=== PATIENT | male | born 1935 | race Caucasian/White ===

== ENCOUNTER 2018-02-17 16:03 | Inpatient (IN) ==
[2018-02-17] MEDS ORDERED: SODIUM CHLORIDE 0.9% 1,000 ML IV STA (16:57)
[2018-02-17 17:19] LABS: Basophils % 0.5 % (0.0-0.8); Eosinophils # 0.4 10*3/uL (0.0-0.87); Eosinophils % 4.9 % (0.00-10.9); Hematocrit 31.9 VOL% (42.0-52.0); Hemoglobin 11.8 GM/DL (14.0-18.0); Immature Granulocytes % 0.1 %; Immature Granulocytes Absolute 0.01 #; Lymphocytes # 1.5 10*3/uL (1.4-4.0); Lymphocytes % 17.5 % (21.2-54.2); Mean Corpuscular Hemoglobin 33 PG (27-34); Mean Corpuscular Volume 89.6 FL (87-102); Mean Platelet Volume 8.6 FL (9.6-12.0); Monocytes # 0.7 10*3/uL (0.11-0.8); Neutrophils # 5.8 10*3/uL (1.4-7.4); Platelet Count 178 T/CUMM (130-400); Red Blood Count 3.56 MC/CUMM (3.8-5.5); White Blood Count 8.4 T/CUMM (4-12)
[2018-02-17 17:25] LABS: Apearance,Urine Slightly Hazy (Clear); Bacteria,Urine Occasional /HPF (Few); Bilirubin,Urine Negative (Negative); Blood, Urine Negative (Negative); Glucose,Urine (UA) Negative (Negative); Ketones,Urine Negative (Negative); Nitrite,Urine Negative (Negative); Protein,Urine Negative; RBC,Urine 2 /HPF (0-4); Urine Color Yellow (Yellow); Urine Specific Gravity 1.002 (1.001-1.035); Urine Urobilinogen < 2.0 EU/DL (0.2-1.0); WBC,Urine 159 /HPF (0-6)
[2018-02-17 17:36] LABS: Calcium 8.4 MG/DL (8.5-10.1); Osmolality,Calculated 243.9 MOS/KG (273-304); Potassium 3.3 MMOL/L (3.5-5.1)
[2018-02-17] MEDS ORDERED: MORPHINE 4 MG/1 ML VIAL IV PRN (20:58)
[2018-02-17] MEDS ORDERED: ACETAMINOPHEN 325 MG TABLET PO PRN (20:58)
[2018-02-17] MEDS ORDERED: MAGNESIUM SULF RIDER 4 GM in PREMIX 1 EACH IV PRN (20:58)
[2018-02-17] MEDS ORDERED: MAGNESIUM SULF RIDER 2 GM in PREMIX 1 EACH IV PRN (20:58)
[2018-02-17] MEDS ORDERED: ONDANSETRON 4 MG/2 ML VIAL IV PRN (20:58)
[2018-02-17] MEDS: SODIUM CHLORIDE 0.9% 1,000 ML IV SCH (22:36)
[2018-02-17] MEDS: LEVOFLOXACIN INJ 750 MG in PREMIX 1 EACH IV SCH (22:36)
[2018-02-17] MEDS: POTASSIUM CHLORIDE 20 MEQ TABLET PO PRN (23:23)
[2018-02-18] MEDS: metroNIDAZOLE INJ 500 MG in PREMIX 1 EACH IV SCH ×3 (00:11→16:16)
[2018-02-18 06:52] LABS: Calcium 8.6 MG/DL (8.5-10.1); Osmolality,Calculated 254.9 MOS/KG (273-304); Potassium 3.8 MMOL/L (3.5-5.1); Thyroid Stimulating Hormone 2.88 uIU/ml (0.358-3.74)
[2018-02-18 06:53] LABS: Basophils % 0.4 % (0.0-0.8); Eosinophils # 0.3 10*3/uL (0.0-0.87); Eosinophils % 3.5 % (0.00-10.9); Hematocrit 35.7 VOL% (42.0-52.0); Hemoglobin 13.4 GM/DL (14.0-18.0); Immature Granulocytes % 0.2 %; Immature Granulocytes Absolute 0.02 #; Lymphocytes # 1.1 10*3/uL (1.4-4.0); Lymphocytes % 11.7 % (21.2-54.2); Mean Corpuscular HGB Conc 37.5 GM/DL (32-36); Mean Corpuscular Hemoglobin 33 PG (27-34); Mean Corpuscular Volume 87.3 FL (87-102); Mean Platelet Volume 8.8 FL (9.6-12.0); Monocytes # 0.9 10*3/uL (0.11-0.8); Monocytes % 9.2 % (1.7-12.7); Platelet Count 211 T/CUMM (130-400); Red Blood Count 4.09 MC/CUMM (3.8-5.5); White Blood Count 9.4 T/CUMM (4-12)
[2018-02-18 07:01] LABS: Giant Platelets Few; Ovalocytes Slight; Platelet Estimate Adequate
[2018-02-18 07:02] LABS: Hypochromasia Slight
[2018-02-18] MEDS: PANTOPRAZOLE 40 MG TABLET PO SCH (09:43)
[2018-02-18] MEDS: SODIUM CHLORIDE 0.9% 1,000 ML IV SCH (09:50)
[2018-02-18] MEDS: POTASSIUM CHLORIDE 20 MEQ TABLET PO PRN (21:12)
[2018-02-18] MEDS: TEMAZEPAM 15 MG CAPSULE PO PRN (21:12)
[2018-02-18] MEDS: LEVOFLOXACIN INJ 750 MG in PREMIX 1 EACH IV SCH (21:12)
[2018-02-19] MEDS: metroNIDAZOLE INJ 500 MG in PREMIX 1 EACH IV SCH ×3 (00:04→16:24)
[2018-02-19 06:12] LABS: Basophils % 0.4 % (0.0-0.8); Eosinophils # 0.4 10*3/uL (0.0-0.87); Eosinophils % 5.7 % (0.00-10.9); Hematocrit 32.2 VOL% (42.0-52.0); Hemoglobin 11.9 GM/DL (14.0-18.0); Immature Granulocytes % 0.6 %; Immature Granulocytes Absolute 0.04 #; Lymphocytes # 1.1 10*3/uL (1.4-4.0); Lymphocytes % 16.5 % (21.2-54.2); Mean Corpuscular Hemoglobin 33 PG (27-34); Mean Corpuscular Volume 89.2 FL (87-102); Mean Platelet Volume 8.8 FL (9.6-12.0); Monocytes # 0.7 10*3/uL (0.11-0.8); Monocytes % 9.6 % (1.7-12.7); Neutrophils # 4.6 10*3/uL (1.4-7.4); Neutrophils % 67.2 % (38.7-73.9); Platelet Count 190 T/CUMM (130-400); Red Blood Count 3.61 MC/CUMM (3.8-5.5); Red Cell Distribution Width 12.1 % (9.3-17.3); White Blood Count 6.9 T/CUMM (4-12)
[2018-02-19] MEDS: SODIUM CHLORIDE 0.9% 1,000 ML IV SCH ×4 (06:15→22:49)
[2018-02-19 06:23] LABS: Calcium 7.5 MG/DL (8.5-10.1); Osmolality,Calculated 259.5 MOS/KG (273-304); Potassium 3.7 MMOL/L (3.5-5.1)
[2018-02-19] MEDS: PANTOPRAZOLE 40 MG TABLET PO SCH (09:35)
[2018-02-19] MEDS: cefTRIAXone 1,000 MG in SYRINGE 1 EACH IV SCH (12:13)
[2018-02-19] MEDS ORDERED: FLUTICASONE 50 MCG NASAL SPRAY 16 GM BOTTLE BOTH NARES PRN (14:41)
[2018-02-19 20:53] LABS: Calcium 7.6 MG/DL (8.5-10.1); Osmolality,Calculated 258.8 MOS/KG (273-304); Potassium 3.6 MMOL/L (3.5-5.1)
[2018-02-19] MEDS: clonazePAM 0.5 MG TABLET PO SCH (21:50)
[2018-02-19] MEDS: TERAZOSIN 5 MG CAPSULE PO SCH (21:50)
[2018-02-19] MEDS: LEVOFLOXACIN INJ 750 MG in PREMIX 1 EACH IV SCH (21:50)
[2018-02-19] MEDS: TEMAZEPAM 15 MG CAPSULE PO PRN (21:50)
[2018-02-20] MEDS: metroNIDAZOLE INJ 500 MG in PREMIX 1 EACH IV SCH ×3 (00:24→15:40)
[2018-02-20] MEDS: BISACODYL 5 MG TABLET PO SCH ×2 (06:36→16:13)
[2018-02-20] MEDS: SODIUM CHLORIDE 0.9% 1,000 ML IV SCH ×3 (06:40→18:37)
[2018-02-20 07:23] LABS: Basophils % 0.6 % (0.0-0.8); Eosinophils # 0.4 10*3/uL (0.0-0.87); Eosinophils % 6.1 % (0.00-10.9); Hematocrit 35.4 VOL% (42.0-52.0); Immature Granulocytes % 0.3 %; Immature Granulocytes Absolute 0.02 #; Lymphocytes # 1.1 10*3/uL (1.4-4.0); Lymphocytes % 15.8 % (21.2-54.2); Mean Corpuscular HGB Conc 36.7 GM/DL (32-36); Mean Corpuscular Hemoglobin 33 PG (27-34); Mean Corpuscular Volume 88.5 FL (87-102); Mean Platelet Volume 8.6 FL (9.6-12.0); Monocytes # 0.7 10*3/uL (0.11-0.8); Monocytes % 9.5 % (1.7-12.7); Neutrophils # 4.8 10*3/uL (1.4-7.4); Neutrophils % 67.7 % (38.7-73.9); Platelet Count 194 T/CUMM (130-400); Red Cell Distribution Width 12.2 % (9.3-17.3)
[2018-02-20 07:49] LABS: Calcium 7.5 MG/DL (8.5-10.1); Osmolality,Calculated 262.4 MOS/KG (273-304); Potassium 3.4 MMOL/L (3.5-5.1)
[2018-02-20] MEDS: ATORVASTATIN 20 MG TABLET PO SCH (09:37)
[2018-02-20] MEDS: ASCORBIC ACID 500 MG TABLET PO SCH (09:37)
[2018-02-20] MEDS: TAMSULOSIN 0.4 MG CAPSULE PO SCH (09:37)
[2018-02-20] MEDS: MAGNESIUM CHLORIDE 64 MG TABLET PO SCH (09:37)
[2018-02-20] MEDS: MULTIVITAMIN (CENTRUM) TABLET PO SCH (09:37)
[2018-02-20] MEDS: CALCIUM (CARBONATE)/VITAMIN D 600 MG-400 UNIT TABLET PO SCH (09:37)
[2018-02-20] MEDS: PROPRANOLOL 20 MG TABLET PO SCH (09:37)
[2018-02-20] MEDS: clonazePAM 0.5 MG TABLET PO SCH ×2 (09:37→21:28)
[2018-02-20] MEDS: hydroCHLOROthiazide 25 MG TABLET PO SCH (09:37)
[2018-02-20] MEDS: PANTOPRAZOLE 40 MG TABLET PO SCH (09:37)
[2018-02-20] MEDS: ASPIRIN EC 81 MG TABLET PO SCH (09:37)
[2018-02-20] MEDS: SPIRONOLACTONE 25 MG TABLET PO SCH (09:39)
[2018-02-20] MEDS: POTASSIUM CHLORIDE RIDER 10 MEQ in PREMIX 1 EACH IV SCH ×3 (11:15→21:33)
[2018-02-20] MEDS: cefTRIAXone 1,000 MG in SYRINGE 1 EACH IV SCH (11:16)
[2018-02-20] MEDS ORDERED: diphenhydrAMINE CAP 25 MG CAPSULE PO PRN (13:44)
[2018-02-20] MEDS ORDERED: POLYETHYLENE GLYCOL POWDER 255 GM BOTTLE PO ONE (16:00)
[2018-02-20] MEDS ORDERED: MAGNESIUM CITRATE 300 ML BOTTLE PO ONE (21:00)
[2018-02-20] MEDS: LEVOFLOXACIN INJ 750 MG in PREMIX 1 EACH IV SCH (21:28)
[2018-02-20] MEDS: TERAZOSIN 5 MG CAPSULE PO SCH (21:28)
[2018-02-21] MEDS: metroNIDAZOLE INJ 500 MG in PREMIX 1 EACH IV SCH ×3 (00:40→16:51)
[2018-02-21] MEDS: SODIUM CHLORIDE 0.9% 1,000 ML IV SCH ×4 (06:34→23:47)
[2018-02-21 06:46] LABS: Basophils % 0.4 % (0.0-0.8); Eosinophils # 0.5 10*3/uL (0.0-0.87); Eosinophils % 5.8 % (0.00-10.9); Hematocrit 36.6 VOL% (42.0-52.0); Hemoglobin 12.9 GM/DL (14.0-18.0); Immature Granulocytes % 0.2 %; Immature Granulocytes Absolute 0.02 #; Lymphocytes # 1.3 10*3/uL (1.4-4.0); Lymphocytes % 16.3 % (21.2-54.2); Mean Corpuscular HGB Conc 35.2 GM/DL (32-36); Mean Corpuscular Hemoglobin 32 PG (27-34); Mean Corpuscular Volume 91.5 FL (87-102); Monocytes # 0.8 10*3/uL (0.11-0.8); Monocytes % 9.1 % (1.7-12.7); Neutrophils # 5.6 10*3/uL (1.4-7.4); Neutrophils % 68.2 % (38.7-73.9); Platelet Count 200 T/CUMM (130-400); White Blood Count 8.2 T/CUMM (4-12)
[2018-02-21 07:11] LABS: Calcium 7.6 MG/DL (8.5-10.1); Osmolality,Calculated 262.4 MOS/KG (273-304); Potassium 3.8 MMOL/L (3.5-5.1)
[2018-02-21] MEDS: PANTOPRAZOLE 40 MG TABLET PO SCH (10:56)
[2018-02-21] MEDS: ASPIRIN EC 81 MG TABLET PO SCH (10:56)
[2018-02-21] MEDS: ATORVASTATIN 20 MG TABLET PO SCH (10:56)
[2018-02-21] MEDS: clonazePAM 0.5 MG TABLET PO SCH ×2 (10:56→21:08)
[2018-02-21] MEDS: MAGNESIUM CHLORIDE 64 MG TABLET PO SCH (10:56)
[2018-02-21] MEDS: SPIRONOLACTONE 25 MG TABLET PO SCH (10:56)
[2018-02-21] MEDS: ASCORBIC ACID 500 MG TABLET PO SCH (10:56)
[2018-02-21] MEDS: MULTIVITAMIN (CENTRUM) TABLET PO SCH (10:56)
[2018-02-21] MEDS: TAMSULOSIN 0.4 MG CAPSULE PO SCH (10:56)
[2018-02-21] MEDS: hydroCHLOROthiazide 25 MG TABLET PO SCH (10:57)
[2018-02-21] MEDS: CALCIUM (CARBONATE)/VITAMIN D 600 MG-400 UNIT TABLET PO SCH (10:57)
[2018-02-21] MEDS: PROPRANOLOL 20 MG TABLET PO SCH (11:09)
[2018-02-21] MEDS ORDERED: POLYETHYLENE GLYCOL POWDER 255 GM BOTTLE PO ONE (16:01)
[2018-02-21] MEDS: BISACODYL 5 MG TABLET PO SCH ×2 (16:54→23:47)
[2018-02-21 20:07] LABS: Albumin 2.8 G/DL (3.4-5.0); Bilirubin,Direct 0.2 MG/DL (0.0-0.20); Bilirubin,Indirect 0.4 MG/DL (0.0-1.0); Bilirubin,Total 0.6 MG/DL (0.2-1.0); Free T4 (Free Thyroxine) 1.1 NG/DL (0.76-1.46); Total Protein 6.2 G/DL (6.4-8.3)
[2018-02-21] MEDS: OXACILLIN 2,000 MG in SODIUM CHLORIDE 0.9% 100 ML IV SCH (21:00)
[2018-02-21] MEDS: TERAZOSIN 5 MG CAPSULE PO SCH (21:07)
[2018-02-21] MEDS: AMPICILLIN INJ 500 MG in SODIUM CHLORIDE 0.9% 100 ML IV SCH (22:14)
[2018-02-22] MEDS: OXACILLIN 2,000 MG in SODIUM CHLORIDE 0.9% 100 ML IV SCH ×4 (00:51→21:08)
[2018-02-22] MEDS: AMPICILLIN INJ 500 MG in SODIUM CHLORIDE 0.9% 100 ML IV SCH ×3 (05:40→22:52)
[2018-02-22 06:20] LABS: Albumin 2.7 G/DL (3.4-5.0); Basophils # 0.1 10*3/uL (0.0-0.2); Basophils % 0.7 % (0.0-0.8); Bilirubin,Direct 0.26 MG/DL (0.0-0.20); Bilirubin,Total 1.3 MG/DL (0.2-1.0); Eosinophils # 0.5 10*3/uL (0.0-0.87); Eosinophils % 5.9 % (0.00-10.9); Hematocrit 35.8 VOL% (42.0-52.0); Hemoglobin 13.1 GM/DL (14.0-18.0); Immature Granulocytes % 0.5 %; Immature Granulocytes Absolute 0.04 #; Lymphocytes # 1.1 10*3/uL (1.4-4.0); Lymphocytes % 12.1 % (21.2-54.2); Mean Corpuscular HGB Conc 36.6 GM/DL (32-36); Mean Corpuscular Hemoglobin 33 PG (27-34); Mean Corpuscular Volume 89.3 FL (87-102); Mean Platelet Volume 9.1 FL (9.6-12.0); Monocytes # 0.6 10*3/uL (0.11-0.8); Monocytes % 7.3 % (1.7-12.7); Neutrophils # 6.4 10*3/uL (1.4-7.4); Neutrophils % 73.5 % (38.7-73.9); Platelet Count 199 T/CUMM (130-400); Red Blood Count 4.01 MC/CUMM (3.8-5.5); Red Cell Distribution Width 12.3 % (9.3-17.3); Total Protein 5.4 G/DL (6.4-8.3); White Blood Count 8.7 T/CUMM (4-12)
[2018-02-22 06:26] LABS: Calcium 7.7 MG/DL (8.5-10.1); Osmolality,Calculated 263.4 MOS/KG (273-304); Potassium 3.3 MMOL/L (3.5-5.1)
[2018-02-22] MEDS ORDERED: MAGNESIUM SULF INJ 3 GM in SODIUM CHLORIDE 0.9% 100 ML IV ONE (08:00)
[2018-02-22] MEDS: POTASSIUM CHLORIDE RIDER 10 MEQ in PREMIX 1 EACH IV SCH ×3 (08:00→10:00)
[2018-02-22] MEDS: MULTIVITAMIN (CENTRUM) TABLET PO SCH (08:27)
[2018-02-22] MEDS: SPIRONOLACTONE 25 MG TABLET PO SCH ×2 (08:27→11:17)
[2018-02-22] MEDS: CALCIUM (CARBONATE)/VITAMIN D 600 MG-400 UNIT TABLET PO SCH (08:27)
[2018-02-22] MEDS: BISACODYL 5 MG TABLET PO SCH (08:27)
[2018-02-22] MEDS: ASPIRIN EC 81 MG TABLET PO SCH (08:27)
[2018-02-22] MEDS: MAGNESIUM CHLORIDE 64 MG TABLET PO SCH ×2 (08:28→21:12)
[2018-02-22] MEDS: TAMSULOSIN 0.4 MG CAPSULE PO SCH ×2 (08:28→11:17)
[2018-02-22] MEDS: PROPRANOLOL 20 MG TABLET PO SCH ×2 (08:28→11:17)
[2018-02-22] MEDS: clonazePAM 0.5 MG TABLET PO SCH ×3 (08:28→21:12)
[2018-02-22] MEDS: PANTOPRAZOLE 40 MG TABLET PO SCH ×2 (08:28→11:16)
[2018-02-22] MEDS: ASCORBIC ACID 500 MG TABLET PO SCH (08:28)
[2018-02-22] MEDS: ATORVASTATIN 20 MG TABLET PO SCH (08:28)
[2018-02-22] MEDS: hydroCHLOROthiazide 25 MG TABLET PO SCH ×2 (08:28→11:17)
[2018-02-22] MEDS ORDERED: LIDOCAINE 2% 5 ML VIAL ONE (09:03)
[2018-02-22] MEDS ORDERED: PROPOFOL 200 MG/20 ML VIAL IV ONE (09:03)
[2018-02-22] MEDS: ZINC OXIDE PASTE 113 GM TUBE TOP SCH ×2 (11:09→21:11)
[2018-02-22] MEDS: SODIUM CHLORIDE 0.9% 1,000 ML IV SCH ×3 (11:11→22:51)
[2018-02-22] MEDS: POTASSIUM CHLORIDE 20 MEQ TABLET PO PRN ×3 (11:16→18:28)
[2018-02-22] MEDS: TERAZOSIN 5 MG CAPSULE PO SCH (21:11)
[2018-02-23] MEDS: OXACILLIN 2,000 MG in SODIUM CHLORIDE 0.9% 100 ML IV SCH ×2 (00:31→09:02)
[2018-02-23 01:48] LABS: Calcium 7.5 MG/DL (8.5-10.1); Osmolality,Calculated 262.5 MOS/KG (273-304)
[2018-02-23] MEDS: AMPICILLIN INJ 500 MG in SODIUM CHLORIDE 0.9% 100 ML IV SCH (05:32)
[2018-02-23] MEDS: MULTIVITAMIN (CENTRUM) TABLET PO SCH (09:03)
[2018-02-23] MEDS: ASCORBIC ACID 500 MG TABLET PO SCH (09:03)
[2018-02-23] MEDS: hydroCHLOROthiazide 25 MG TABLET PO SCH (09:03)
[2018-02-23] MEDS: TAMSULOSIN 0.4 MG CAPSULE PO SCH (09:03)
[2018-02-23] MEDS: PROPRANOLOL 20 MG TABLET PO SCH (09:03)
[2018-02-23] MEDS: ATORVASTATIN 20 MG TABLET PO SCH (09:03)
[2018-02-23] MEDS: clonazePAM 0.5 MG TABLET PO SCH (09:03)
[2018-02-23] MEDS: SPIRONOLACTONE 25 MG TABLET PO SCH (09:03)
[2018-02-23] MEDS: CALCIUM (CARBONATE)/VITAMIN D 600 MG-400 UNIT TABLET PO SCH (09:03)
[2018-02-23] MEDS: ASPIRIN EC 81 MG TABLET PO SCH (09:04)
[2018-02-23] MEDS: MAGNESIUM CHLORIDE 64 MG TABLET PO SCH (09:04)
[2018-02-23] MEDS: ZINC OXIDE PASTE 113 GM TUBE TOP SCH (09:04)
[2018-02-23] MEDS: PANTOPRAZOLE 40 MG TABLET PO SCH (09:04)
[2018-02-23 11:41] VITALS: BP 94/53
== END 2018-02-23 12:36 | disposition home health service (06) | DRG 371 ==
LOC: N.ED 16:03 → N.EDINP 20:03 → N.5E 20:39

== ENCOUNTER 2021-10-11 15:58 | Inpatient (IN) ==
[2021-10-11] MEDS ORDERED: SODIUM CHLORIDE 0.9% 1,000 ML IV STA (16:28)
[2021-10-11 16:51] LABS: Basophils # 0.1 10*3/uL (0.0-0.2); Basophils % 0.7 % (0.0-0.8); Eosinophils # 0.1 10*3/uL (0.0-0.87); Eosinophils % 0.5 % (0.00-10.9); Hematocrit 36.3 VOL% (42.0-52.0); Hemoglobin 12.4 GM/DL (14.0-18.0); Immature Granulocytes % 0.2 %; Immature Granulocytes Absolute 0.02 #; Lymphocytes # 1.9 10*3/uL (1.4-4.0); Lymphocytes % 20.3 % (21.2-54.2); Mean Corpuscular HGB Conc 34.2 GM/DL (32-36); Mean Corpuscular Volume 92.8 FL (87-102); Mean Platelet Volume 9.9 FL (9.6-12.0); Monocytes % 10.9 % (1.7-12.7); Neutrophils % 67.4 % (38.7-73.9); Platelet Count 185 T/CUMM (130-400); Red Blood Count 3.91 MC/CUMM (3.8-5.5); Red Cell Distribution Width 12.9 % (9.3-17.3); White Blood Count 9.2 T/CUMM (4-12)
[2021-10-11 17:05] LABS: Albumin 2.9 G/DL (3.4-5.0); Bilirubin,Total 0.9 MG/DL (0.20-1.00); Calcium 8.5 MG/DL (8.5-10.1); Osmolality,Calculated 264.8 MOS/KG (273-304); Potassium 3.8 MMOL/L (3.5-5.1); Total Protein 6.3 G/DL (6.4-8.2)
[2021-10-11] MEDS ORDERED: hydrALAZINE 20 MG/1 ML VIAL IV PRN (20:04)
[2021-10-11] MEDS ORDERED: ACETAMINOPHEN 325 MG TABLET PO PRN (20:04)
[2021-10-11] MEDS ORDERED: GLUCAGON 1 MG VIAL IM PRN (20:04)
[2021-10-11] MEDS ORDERED: MORPHINE 2 MG/1 ML SYRINGE IV PRN (20:04)
[2021-10-11] MEDS ORDERED: DEXTROSE 10% 250 ML BAG IV PRN (20:04)
[2021-10-11] MEDS ORDERED: ONDANSETRON 4 MG/2 ML VIAL IV PRN (20:04)
[2021-10-11] MEDS ORDERED: SODIUM CHLORIDE 0.9% 1,000 ML IV SCH (20:30)
[2021-10-11 20:37] LABS: Bilirubin,Urine Negative (Negative); Blood, Urine Moderate mg/dL (Negative); Glucose,Urine (UA) Negative (Negative); Ketones,Urine Negative (Negative); Nitrite,Urine Negative (Negative); Protein,Urine Negative; RBC,Urine 7 /HPF (0-4); Urine Appearance CLEAR (Clear); Urine Color Straw (Yellow); Urine Specific Gravity 1.012 (1.001-1.035); Urine Urobilinogen < 2.0 EU/DL (<2.0)
[2021-10-12 06:41] LABS: Basophils # 0.1 10*3/uL (0.0-0.2); Basophils % 0.7 % (0.0-0.8); Eosinophils # 0.1 10*3/uL (0.0-0.87); Hemoglobin 11.8 GM/DL (14.0-18.0); Immature Granulocytes % 0.3 %; Immature Granulocytes Absolute 0.02 #; Lymphocytes # 1.5 10*3/uL (1.4-4.0); Lymphocytes % 22.8 % (21.2-54.2); Mean Corpuscular HGB Conc 33.7 GM/DL (32-36); Mean Corpuscular Volume 92.8 FL (87-102); Mean Platelet Volume 10.2 FL (9.6-12.0); Monocytes % 10.9 % (1.7-12.7); Neutrophils % 64.3 % (38.7-73.9); Platelet Count 172 T/CUMM (130-400); Red Blood Count 3.77 MC/CUMM (3.8-5.5); White Blood Count 6.7 T/CUMM (4-12)
[2021-10-12 07:03] LABS: Albumin 2.5 G/DL (3.4-5.0); Calcium 8.1 MG/DL (8.5-10.1); Osmolality,Calculated 269.1 MOS/KG (273-304); Potassium 3.6 MMOL/L (3.5-5.1); Total Protein 5.6 G/DL (6.4-8.2)
[2021-10-12] MEDS: ENOXAPARIN 40 MG/0.4 ML SYRINGE SUBCUT SCH (10:09)
[2021-10-12] MEDS: PANTOPRAZOLE 40 MG TABLET PO SCH (10:09)
[2021-10-12] MEDS ORDERED: MAGNESIUM SULF RIDER 2 GM/50 ML PREMIX IV ONE (10:29)
[2021-10-12 16:06] LABS: Cancer Antigen 19-9 12.57 U/ML (0-35); Carcinoembryonic Antigen 0.8 NG/ML (0.0-5.0); Prostate Specific Antigen Diag 1.05 NG/ML (0-3.60)
[2021-10-12 16:13] LABS: INR 1.3; PT Patient Result 14.5 SECS (10.5-12.0)
[2021-10-12] MEDS: clonazePAM 0.5 MG TABLET PO SCH (20:22)
[2021-10-13 05:52] LABS: Basophils # 0.1 10*3/uL (0.0-0.2); Basophils % 0.9 % (0.0-0.8); Eosinophils # 0.3 10*3/uL (0.0-0.87); Eosinophils % 3.1 % (0.00-10.9); Hematocrit 36.9 VOL% (42.0-52.0); Hemoglobin 12.3 GM/DL (14.0-18.0); Immature Granulocytes % 0.5 %; Immature Granulocytes Absolute 0.04 #; Lymphocytes # 1.6 10*3/uL (1.4-4.0); Lymphocytes % 19.4 % (21.2-54.2); Mean Corpuscular HGB Conc 33.3 GM/DL (32-36); Mean Corpuscular Volume 94.4 FL (87-102); Mean Platelet Volume 9.6 FL (9.6-12.0); Neutrophils % 67.1 % (38.7-73.9); Platelet Count 170 T/CUMM (130-400); Red Blood Count 3.91 MC/CUMM (3.8-5.5); Red Cell Distribution Width 13.2 % (9.3-17.3)
[2021-10-13 06:28] LABS: Calcium 7.9 MG/DL (8.5-10.1); Osmolality,Calculated 264.4 MOS/KG (273-304); Potassium 3.9 MMOL/L (3.5-5.1)
[2021-10-13] MEDS: LEVOTHYROXINE 50 MCG TABLET PO SCH (07:25)
[2021-10-13] MEDS ORDERED: SODIUM CHLORIDE 0.45% 1,000 ML IV SCH (09:30)
[2021-10-13] MEDS: MAGNESIUM CHLORIDE 64 MG TABLET PO SCH (09:40)
[2021-10-13] MEDS: PANTOPRAZOLE 40 MG TABLET PO SCH (09:40)
[2021-10-13] MEDS: TAMSULOSIN 0.4 MG CAPSULE PO SCH (09:40)
[2021-10-13] MEDS: clonazePAM 0.5 MG TABLET PO SCH ×2 (09:40→20:16)
[2021-10-13] MEDS: ENOXAPARIN 40 MG/0.4 ML SYRINGE SUBCUT SCH (09:53)
[2021-10-14] MEDS: LEVOTHYROXINE 50 MCG TABLET PO SCH (05:34)
[2021-10-14] MEDS: clonazePAM 0.5 MG TABLET PO SCH (09:06)
[2021-10-14] MEDS: ENOXAPARIN 40 MG/0.4 ML SYRINGE SUBCUT SCH (09:06)
[2021-10-14] MEDS: MAGNESIUM CHLORIDE 64 MG TABLET PO SCH (09:07)
[2021-10-14] MEDS: PANTOPRAZOLE 40 MG TABLET PO SCH (09:07)
[2021-10-14] MEDS: TAMSULOSIN 0.4 MG CAPSULE PO SCH (09:07)
[2021-10-14 11:46] VITALS: BP 131/62
== END 2021-10-14 14:11 | disposition home health service (06) | DRG 844 ==
LOC: N.ED 15:58 → SUATTDRO 20:04 → N.EDINP 20:04 → N.5E 22:44
PROVIDERS: ADMIT Internal Medicine; ATTEND Internal Medicine

== ENCOUNTER 2021-12-14 13:14 | Inpatient (IN) ==
[2021-12-14] MEDS ORDERED: SODIUM CHLORIDE 0.9% 1,000 ML IV STA (13:45)
[2021-12-14 14:31] LABS: Basophils # 0.1 10*3/uL (0.0-0.2); Eosinophils # 0.2 10*3/uL (0.0-0.87); Eosinophils % 2.5 % (0.00-10.9); Hematocrit 36.6 VOL% (42.0-52.0); Hemoglobin 12.1 GM/DL (14.0-18.0); Immature Granulocytes % 0.3 %; Immature Granulocytes Absolute 0.02 #; Lymphocytes # 1.2 10*3/uL (1.4-4.0); Lymphocytes % 19.8 % (21.2-54.2); Mean Corpuscular HGB Conc 33.1 GM/DL (32-36); Mean Corpuscular Volume 93.8 FL (87-102); Monocytes % 7.9 % (1.7-12.7); Neutrophils % 68.5 % (38.7-73.9); Platelet Count 173 T/CUMM (130-400); Red Cell Distribution Width 13.9 % (9.3-17.3)
[2021-12-14 14:43] LABS: INR 1.2
[2021-12-14 14:51] LABS: Albumin 2.7 G/DL (3.4-5.0); Bilirubin,Total 0.9 MG/DL (0.20-1.00); Calcium 8.3 MG/DL (8.5-10.1); Osmolality,Calculated 275.7 MOS/KG (273-304); Potassium 3.9 MMOL/L (3.5-5.1); Total Protein 6.2 G/DL (6.4-8.2)
[2021-12-14] MEDS ORDERED: ALUMINUM/MAGNES/SIMETH MAX STR 30 ML UDCUP PO PRN (16:38)
[2021-12-14] MEDS ORDERED: guaiFENesin/DM ER 600-30 MG TABLET PO PRN (16:38)
[2021-12-14] MEDS ORDERED: ALBUTEROL 2.5 MG/3 ML NEB RESP TX PRN (16:38)
[2021-12-14] MEDS ORDERED: CALCIUM CARBONATE CHEW 500 MG TABLET PO PRN (16:38)
[2021-12-14] MEDS ORDERED: GLUCAGON 1 MG VIAL IM PRN (16:38)
[2021-12-14] MEDS ORDERED: SIMETHICONE CHEW 125 MG TABLET PO PRN (16:38)
[2021-12-14] MEDS ORDERED: hydrALAZINE 20 MG/1 ML VIAL IV PRN (16:38)
[2021-12-14] MEDS ORDERED: ACETAMINOPHEN 325 MG TABLET PO PRN (16:38)
[2021-12-14] MEDS ORDERED: ONDANSETRON 4 MG/2 ML VIAL IV PRN (16:38)
[2021-12-14] MEDS ORDERED: DEXTROSE 10% 250 ML BAG IV PRN (16:54)
[2021-12-14] MEDS ORDERED: cefTRIAXone 1,000 MG in SODIUM CHLORIDE 0.9% 100 ML IV SCH (17:00)
[2021-12-14] MEDS: LACTATED RINGERS 1,000 ML IV SCH (17:17)
[2021-12-14] MEDS ORDERED: AZITHROMYCIN INJ 500 MG in SODIUM CHLORIDE 0.9% 250 ML IV SCH (18:00)
[2021-12-14] MEDS ORDERED: MAGNESIUM SULF RIDER 2 GM/50 ML PREMIX IV ONE (18:23)
[2021-12-14] MEDS: ALBUTEROL/IPRATROPIUM 3 ML NEB RESP TX SCH ×2 (19:23→19:38)
[2021-12-14] MEDS: ENOXAPARIN 40 MG/0.4 ML SYRINGE SUBCUT SCH (22:59)
[2021-12-14] MEDS: ATORVASTATIN 20 MG TABLET PO SCH (23:00)
[2021-12-15] MEDS: ALBUTEROL/IPRATROPIUM 3 ML NEB RESP TX SCH ×4 (00:17→19:00)
[2021-12-15 00:33] LABS: Bacteria,Urine Occasional /HPF (Few); RBC,Urine 3 /HPF (0-4); Squamous Epithelial Cell,Urine Occasional /HPF (0-10)
[2021-12-15 00:34] LABS: Urine Appearance Clear (Clear); Urine Color Yellow (Yellow)
[2021-12-15 00:35] LABS: Bilirubin,Urine Negative (Negative); Blood, Urine Negative (Negative); Glucose,Urine (UA) Negative (Negative); Ketones,Urine TR mg/dL (Negative); Nitrite,Urine Negative (Negative); Protein,Urine Negative (Negative); Urine Specific Gravity 1.015 (1.001-1.035); Urine Urobilinogen 0.2 eU/dL (<2.0); Urine pH 6.5 (4.5-8.0)
[2021-12-15] MEDS: LACTATED RINGERS 1,000 ML IV SCH ×2 (02:10→18:36)
[2021-12-15 05:16] LABS: Basophils # 0.1 10*3/uL (0.0-0.2); Eosinophils # 0.1 10*3/uL (0.0-0.87); Eosinophils % 2.2 % (0.00-10.9); Hematocrit 33.3 VOL% (42.0-52.0); Immature Granulocytes % 0.2 %; Immature Granulocytes Absolute 0.01 #; Lymphocytes # 1.6 10*3/uL (1.4-4.0); Lymphocytes % 32.5 % (21.2-54.2); Mean Corpuscular Volume 94.3 FL (87-102); Monocytes % 9.5 % (1.7-12.7); Neutrophils % 54.6 % (38.7-73.9); Platelet Count 151 T/CUMM (130-400); Red Blood Count 3.53 MC/CUMM (3.8-5.5); Red Cell Distribution Width 13.8 % (9.3-17.3); White Blood Count 4.9 T/CUMM (4-12)
[2021-12-15 05:51] LABS: Albumin 2.3 G/DL (3.4-5.0); Bilirubin,Total 0.9 MG/DL (0.20-1.00); Calcium 7.9 MG/DL (8.5-10.1); Osmolality,Calculated 273.7 MOS/KG (273-304); Potassium 3.8 MMOL/L (3.5-5.1); Total Protein 5.6 G/DL (6.4-8.2)
[2021-12-15] MEDS: LEVOTHYROXINE 50 MCG TABLET PO SCH (06:18)
[2021-12-15] MEDS ORDERED: RASAGILINE 0.5 MG TABLET PO SCH (09:00)
[2021-12-15] MEDS ORDERED: DIPHENOXYLATE/ATROPINE 2.5-0.025 MG TABLET PO PRN ×2 (09:31→13:00)
[2021-12-15 11:09] LABS: Free T4 (Free Thyroxine) 1.2 NG/DL (0.76-1.46); Thyroid Stimulating Hormone 1.59 uIU/ml (0.358-3.74)
[2021-12-15] MEDS: ASPIRIN CHEW 81 MG TABLET PO SCH (11:17)
[2021-12-15] MEDS: PANTOPRAZOLE 40 MG TABLET PO SCH (11:17)
[2021-12-15] MEDS: TAMSULOSIN 0.4 MG CAPSULE PO SCH (11:17)
[2021-12-15] MEDS: POTASSIUM CHLORIDE 10 MEQ TABLET PO SCH (12:35)
[2021-12-15] MEDS: CYANOCOBALAMIN 500 MCG TABLET PO SCH (21:45)
[2021-12-15] MEDS: ENOXAPARIN 40 MG/0.4 ML SYRINGE SUBCUT SCH (21:45)
[2021-12-15] MEDS: RASAGILINE 0.5 MG TABLET PO SCH (21:45)
[2021-12-15] MEDS: ATORVASTATIN 20 MG TABLET PO SCH (21:46)
[2021-12-16] MEDS: LEVOTHYROXINE 50 MCG TABLET PO SCH (05:42)
[2021-12-16 05:58] LABS: Basophils # 0.1 10*3/uL (0.0-0.2); Eosinophils # 0.2 10*3/uL (0.0-0.87); Eosinophils % 2.9 % (0.00-10.9); Hemoglobin 11.4 GM/DL (14.0-18.0); Immature Granulocytes % 0.4 %; Immature Granulocytes Absolute 0.02 #; Lymphocytes # 1.5 10*3/uL (1.4-4.0); Lymphocytes % 29.2 % (21.2-54.2); Mean Corpuscular HGB Conc 32.6 GM/DL (32-36); Mean Corpuscular Volume 94.6 FL (87-102); Mean Platelet Volume 10.5 FL (9.6-12.0); Monocytes % 9.2 % (1.7-12.7); Neutrophils % 57.3 % (38.7-73.9); Platelet Count 165 T/CUMM (130-400); Red Cell Distribution Width 13.7 % (9.3-17.3); White Blood Count 5.2 T/CUMM (4-12)
[2021-12-16 06:15] LABS: Albumin 2.5 G/DL (3.4-5.0); Bilirubin,Total 1.1 MG/DL (0.20-1.00); Calcium 8.6 MG/DL (8.5-10.1); Potassium 3.7 MMOL/L (3.5-5.1)
[2021-12-16] MEDS: LACTATED RINGERS 1,000 ML IV SCH ×2 (08:27→21:00)
[2021-12-16] MEDS: ALBUTEROL/IPRATROPIUM 3 ML NEB RESP TX SCH ×4 (08:57→19:50)
[2021-12-16] MEDS ORDERED: NON-FORMULARY MEDICATION (Cranberry Conc-Ascorbic Acid 4,200-20 mg Capsule) PO SCH (09:00)
[2021-12-16] MEDS: ASPIRIN CHEW 81 MG TABLET PO SCH (10:08)
[2021-12-16] MEDS: MAGNESIUM CHLORIDE 64 MG TABLET PO SCH (10:08)
[2021-12-16] MEDS: TAMSULOSIN 0.4 MG CAPSULE PO SCH (10:08)
[2021-12-16] MEDS: CHOLECALCIFEROL 1,000 UNIT TABLET PO SCH (10:09)
[2021-12-16] MEDS: ASCORBIC ACID 500 MG TABLET PO SCH (10:09)
[2021-12-16] MEDS: CYANOCOBALAMIN 500 MCG TABLET PO SCH ×2 (10:09→20:59)
[2021-12-16] MEDS: POTASSIUM CHLORIDE 10 MEQ TABLET PO SCH (10:09)
[2021-12-16] MEDS: PANTOPRAZOLE 40 MG TABLET PO SCH (10:09)
[2021-12-16] MEDS: ATORVASTATIN 20 MG TABLET PO SCH (20:59)
[2021-12-16] MEDS: ENOXAPARIN 40 MG/0.4 ML SYRINGE SUBCUT SCH (20:59)
[2021-12-16] MEDS: RASAGILINE 0.5 MG TABLET PO SCH (20:59)
[2021-12-17] MEDS: ALBUTEROL/IPRATROPIUM 3 ML NEB RESP TX SCH ×3 (00:35→14:23)
[2021-12-17] MEDS: LEVOTHYROXINE 50 MCG TABLET PO SCH ×2 (04:26→05:33)
[2021-12-17 05:10] LABS: Basophils # 0.1 10*3/uL (0.0-0.2); Basophils % 0.8 % (0.0-0.8); Eosinophils # 0.1 10*3/uL (0.0-0.87); Eosinophils % 1.1 % (0.00-10.9); Hematocrit 33.4 VOL% (42.0-52.0); Immature Granulocytes % 0.3 %; Immature Granulocytes Absolute 0.02 #; Lymphocytes # 1.1 10*3/uL (1.4-4.0); Lymphocytes % 18.5 % (21.2-54.2); Mean Corpuscular HGB Conc 32.9 GM/DL (32-36); Mean Corpuscular Volume 95.4 FL (87-102); Monocytes % 8.3 % (1.7-12.7); Platelet Count 158 T/CUMM (130-400); Red Cell Distribution Width 13.7 % (9.3-17.3); White Blood Count 6.1 T/CUMM (4-12)
[2021-12-17 05:36] LABS: Alanine Aminotransferase < 9 U/L (16-61); Albumin 2.6 G/DL (3.4-5.0); Alkaline Phosphatase 121 U/L (45-117); Aspartate Amino Transferase 19 U/L (0-37); Blood Urea Nitrogen 10 MG/DL (7-18); Calcium 8.4 MG/DL (8.5-10.1); Estimated Glom Filtration Rate 79 ML/MIN; Glucose 130 MG/DL (74-106); Potassium 3.5 MMOL/L (3.5-5.1); Total Protein 5.9 G/DL (6.4-8.2)
[2021-12-17 05:44] LABS: Carbon Dioxide 36 MMOL/L (21-32)
[2021-12-17 05:45] LABS: Osmolality,Calculated 273.8 MOS/KG (273-304); Sodium 137 MMOL/L (136-145)
[2021-12-17] MEDS ORDERED: CARBIDOPA/LEVODOPA 25-100 MG TABLET PO SCH (07:30)
[2021-12-17 08:30] VITALS: BP 152/58
[2021-12-17] MEDS: MAGNESIUM CHLORIDE 64 MG TABLET PO SCH (08:54)
[2021-12-17] MEDS: CHOLECALCIFEROL 1,000 UNIT TABLET PO SCH (08:54)
[2021-12-17] MEDS: ASCORBIC ACID 500 MG TABLET PO SCH (08:54)
[2021-12-17] MEDS: POTASSIUM CHLORIDE 10 MEQ TABLET PO SCH (08:54)
[2021-12-17] MEDS: CYANOCOBALAMIN 500 MCG TABLET PO SCH (08:54)
[2021-12-17] MEDS: PANTOPRAZOLE 40 MG TABLET PO SCH (08:54)
[2021-12-17] MEDS ORDERED: ASPIRIN EC 81 MG TABLET PO SCH (09:00)
[2021-12-17] MEDS ORDERED: TAMSULOSIN 0.4 MG CAPSULE PO SCH (21:00)
[2021-12-18] MEDS ORDERED: LEVOTHYROXINE 50 MCG TABLET PO SCH (06:30)
== END 2021-12-17 14:25 | disposition home health service (06) | DRG 843 ==
LOC: SUATTDRO → N.ED 13:14 → N.EDINP 16:38 → N.5E 21:59
PROVIDERS: ADMIT Internal Medicine; ATTEND Internal Medicine